=== PATIENT | male | born 1960 | race Caucasian/White ===

== ENCOUNTER 2018-10-08 10:53 | Inpatient (IN) | payer MEDICAID, SELFPAY ==
[~2018-10-08] VITALS: Ht 180.3 cm; Wt 79.5 kg
[2018-10-08] VITALS (9 sets, daily range): BP systolic 102–129; BP diastolic 66–81
[~2018-10-08 10:53] MED LIST: CLOP75TA3 PO; GABA-531 PO; LISI-660 PO; METO-558 PO; PERCT10 PO
[2018-10-08] MEDS ORDERED: TRAZ-220 PO (11:55)
[2018-10-08] MEDS ORDERED: PREG50 PO (11:56)
[2018-10-08] MEDS ORDERED: LOPERAMIDE HCL 2 MG CAPSULE PO PRN ×2 (13:00→20:30)
[2018-10-08] MEDS ORDERED: CYANOCOBALAMIN 1,000 MCG/ML VIAL IM ONE (13:00)
[2018-10-08] MEDS ORDERED: GuaiFENesin/D-METHORPHAN [SUGAR-FREE] 200-20MG/10 ML SYRUP UDCUP PO PRN (13:00)
[2018-10-08] MEDS ORDERED: LORazepam 2 MG TABLET PO PRN (13:00)
[2018-10-08] MEDS ORDERED: HydrOXYzine PAMOATE 50 MG CAPSULE PO PRN (13:00)
[2018-10-08] MEDS: FOLIC ACID 1 MG TABLET PO SCH (13:37)
[2018-10-08] MEDS: MULTIVITAMINS WITH MINERALS, THERAPEUTIC TABLET PO SCH (13:38)
[2018-10-08] MEDS: ARIPiprazole 5 MG TABLET PO SCH (13:38)
[2018-10-08] MEDS: THIAMINE HCL 100 MG TABLET PO SCH (16:09)
[2018-10-08] MEDS ORDERED: MAGNESIUM HYDROXIDE SUSPENSION 30 ML UDCUP PO PRN (20:30)
[2018-10-08] MEDS ORDERED: PETROLATUM,WHITE 71 GM JELLY TP PRN (20:30)
[2018-10-08] MEDS ORDERED: BENZOCAINE/MENTHOL LOZENGE MM PRN (20:30)
[2018-10-08] MEDS ORDERED: ALBUTEROL SULFATE HFA 90 MCG/PUFF 8 GM INHALER IH PRN (20:30)
[2018-10-08] MEDS ORDERED: MAG HYDROX/AL HYDROX/SIMETH ES 30 ML SUSPENSION UDCUP PO PRN (20:30)
[2018-10-08] MEDS ORDERED: CloNIDine HCL 0.1 MG TABLET PO PRN (20:30)
[2018-10-08] MEDS ORDERED: ONDANSETRON HCL 4 MG TABLET PO PRN (20:30)
[2018-10-08] MEDS ORDERED: BACITRACIN 28.4 GM OINTMENT TP PRN (20:30)
[2018-10-08] MEDS ORDERED: MIRTAZAPINE 15 MG TABLET PO SCH (21:00)
[2018-10-09 00:01] VITALS: BP 118/79
[2018-10-09 04:00] VITALS: BP 121/78
[2018-10-09] MEDS ORDERED: LORazepam 2 MG TABLET PO PRN (07:00)
[2018-10-09 08:00] VITALS: BP 102/71
[2018-10-09 08:12] LABS: BASOPHILS % (AUTO) 0.6 % (0.0-2.0); EOSINOPHILS % (AUTO) 0.8 % (1.0-6.0); HEMATOCRIT 42.9 % (41-53); HEMOGLOBIN 15.2 g/dL (13.5-17.5); LYMPHOCYTES # (AUTO) 1.7 K/uL (1.0-4.8); LYMPHOCYTES % (AUTO) 29.3 % (22.0-44.0); MEAN CORPUSCULAR HEMOGLOBIN 32.2 pg (26.0-34.0); MEAN CORPUSCULAR HGB CONC 35.4 G/dL (31.0-37.0); MEAN CORPUSCULAR VOLUME 91 fL (80-100); MONOCYTES # (AUTO) 0.4 K/uL (0.1-1.0); MONOCYTES % (AUTO) 7.7 % (2.0-9.0); NEUTROPHILS # (AUTO) 3.6 K/uL (1.8-7.7); NEUTROPHILS % (AUTO) 61.6 % (40.0-70.0); PLATELET COUNT (AUTO) 289 K/uL (150-450); RED BLOOD CELL COUNT(AUTO) 4.71 MIL/uL (4.50-5.90)
[2018-10-09] MEDS: FOLIC ACID 1 MG TABLET PO SCH (08:33)
[2018-10-09] MEDS: DOCUSATE SODIUM 100 MG CAPSULE PO SCH (08:33)
[2018-10-09] MEDS: MULTIVITAMINS WITH MINERALS, THERAPEUTIC TABLET PO SCH (08:33)
[2018-10-09] MEDS: LORazepam 2 MG TABLET PO SCH ×4 (08:33→20:20)
[2018-10-09] MEDS: SIMVASTATIN 20 MG TABLET PO SCH (08:33)
[2018-10-09] MEDS: THIAMINE HCL 100 MG TABLET PO SCH ×2 (08:33→16:59)
[2018-10-09] MEDS: CLOPIDOGREL BISULFATE 75 MG TABLET PO SCH (08:34)
[2018-10-09] MEDS: METOPROLOL TARTRATE 50 MG TABLET PO SCH (08:34)
[2018-10-09 08:40] LABS: HEMOGLOBIN A1C 5.1 % (4.5-6.2)
[2018-10-09 08:51] LABS: ALANINE AMINOTRANSFERASE 27 U/L (12-78); ALBUMIN 3.2 g/dL (3.4-5.0); ALKALINE PHOSPHATASE 103 U/L (46-116); ANION GAP 7 mmol/L (8-16); ASPARTATE AMINOTRANSFERASE 21 U/L (15-37); BILIRUBIN,TOTAL 0.4 mg/dL (0.1-1.0); CALCIUM, TOTAL 9.3 mg/dL (8.8-10.5); CARBON DIOXIDE 27 mmol/L (22-29); CHLORIDE 103 mmol/L (98-107); CHOL/HDL RATIO 3.9 (4.2-7.3); CHOLESTEROL 228 mg/dL (131-200); CREATININE 0.75 mg/dL (0.60-1.30); FREE T4 (FREE THYROXINE) 0.77 ng/dL (0.76-1.46); GLOMERULAR FILTR. RATE CALC > 60 mL/min (>60); GLUCOSE,RANDOM 86 mg/dL (70-110); HDL CHOLESTEROL 59 mg/dL (40-60); LDL CHOL (CALC.) 125 mg/dL (0-130); SODIUM SERUM 137 mmol/L (136-145); THYROID STIMULATING HORMONE 0.86 uIU/mL (0.36-3.74); TOTAL PROTEIN, SERUM 6.7 g/dL (6.4-8.2); TRIGLYCERIDES 218 mg/dL (15-150); UREA NITROGEN, BLOOD 12 mg/dL (7-18)
[2018-10-09] MEDS: LISINOPRIL 5 MG TABLET PO SCH (09:29)
[2018-10-09] MEDS: ARIPiprazole 5 MG TABLET PO SCH (09:29)
[2018-10-09 12:00] VITALS: BP 111/73
[2018-10-09 16:00] VITALS: BP 122/74
[2018-10-09] MEDS: MIRTAZAPINE 30 MG TABLET PO SCH (20:21)
[2018-10-10 00:01] VITALS: BP 116/70
[2018-10-10] MEDS: ZOLPIDEM TARTRATE 10 MG TABLET PO PRN (00:05)
[2018-10-10] MEDS: ACETAMINOPHEN 325 MG TABLET PO PRN (00:05)
[2018-10-10 08:00] VITALS: BP 109/84
[2018-10-10 08:18] VITALS: BP 109/84
[2018-10-10] MEDS: ARIPiprazole 10 MG TABLET PO SCH (08:57)
[2018-10-10] MEDS: MULTIVITAMINS WITH MINERALS, THERAPEUTIC TABLET PO SCH (08:57)
[2018-10-10] MEDS: LORazepam 2 MG TABLET PO SCH ×4 (08:57→21:22)
[2018-10-10] MEDS: LISINOPRIL 5 MG TABLET PO SCH (08:58)
[2018-10-10] MEDS: GABAPENTIN 300 MG CAPSULE PO SCH ×2 (08:58→16:32)
[2018-10-10] MEDS: SIMVASTATIN 20 MG TABLET PO SCH (08:58)
[2018-10-10] MEDS: FOLIC ACID 1 MG TABLET PO SCH (08:58)
[2018-10-10] MEDS: THIAMINE HCL 100 MG TABLET PO SCH ×2 (08:58→16:32)
[2018-10-10] MEDS: CLOPIDOGREL BISULFATE 75 MG TABLET PO SCH (08:58)
[2018-10-10] MEDS: OMEGA-3/DHA/EPA/FISH OIL 1,000 MG CAPSULE PO SCH (08:58)
[2018-10-10] MEDS: METOPROLOL TARTRATE 50 MG TABLET PO SCH (08:58)
[2018-10-10] MEDS: DOCUSATE SODIUM 100 MG CAPSULE PO SCH (08:58)
[2018-10-10] MEDS ORDERED: LORazepam 2 MG/ML VIAL IM ONE (15:15)
[2018-10-10] MEDS ORDERED: DiphenhydrAMINE HCL 50 MG/ML VIAL IM ONE (15:15)
[2018-10-10] MEDS ORDERED: HALOPERIDOL LACTATE 5 MG/ML VIAL IM ONE (15:15)
[2018-10-10 16:00] VITALS: BP 103/70
[2018-10-10 16:01] VITALS: BP 103/70
[2018-10-10] MEDS: NICOTINE 21 MG/24 HOUR PATCH TD SCH (17:23)
[2018-10-10] MEDS: MIRTAZAPINE 30 MG TABLET PO SCH (20:29)
[2018-10-11] VITALS (9 sets, daily range): BP systolic 109–122; BP diastolic 68–89
[2018-10-11] MEDS: ZOLPIDEM TARTRATE 10 MG TABLET PO PRN (00:13)
[2018-10-11] MEDS: ACETAMINOPHEN 325 MG TABLET PO PRN ×2 (01:47→06:24)
[2018-10-11] MEDS: HALOPERIDOL 5 MG TABLET PO PRN ×2 (01:47→14:52)
[2018-10-11] MEDS ORDERED: DiphenhydrAMINE HCL 50 MG/ML VIAL ONE (06:25)
[2018-10-11] MEDS ORDERED: HALOPERIDOL LACTATE 5 MG/ML VIAL ONE (06:26)
[2018-10-11] MEDS ORDERED: LORazepam 2 MG/ML VIAL ONE (06:26)
[2018-10-11] MEDS ORDERED: DiphenhydrAMINE HCL 50 MG/ML VIAL IM ONE ×2 (06:30→10:45)
[2018-10-11] MEDS ORDERED: HALOPERIDOL LACTATE 5 MG/ML VIAL IM ONE ×2 (06:30→10:45)
[2018-10-11] MEDS ORDERED: LORazepam 2 MG/ML VIAL IM ONE ×2 (06:30→10:45)
[2018-10-11] MEDS ORDERED: LORazepam 1 MG TABLET PO PRN (07:00)
[2018-10-11 08:48] LABS: ALANINE AMINOTRANSFERASE 38 U/L (12-78); ALBUMIN 3.8 g/dL (3.4-5.0); ALKALINE PHOSPHATASE 109 U/L (46-116); ANION GAP 11 mmol/L (8-16); ASPARTATE AMINOTRANSFERASE 50 U/L (15-37); BILIRUBIN,TOTAL 0.6 mg/dL (0.1-1.0); CALCIUM, TOTAL 9.6 mg/dL (8.8-10.5); CARBON DIOXIDE 26 mmol/L (22-29); CHLORIDE 105 mmol/L (98-107); CREATININE 0.82 mg/dL (0.60-1.30); GLOMERULAR FILTR. RATE CALC > 60 mL/min (>60); GLUCOSE,RANDOM 89 mg/dL (70-110); POTASSIUM 4.2 mmol/L (3.5-5.1); SODIUM SERUM 142 mmol/L (136-145); TOTAL PROTEIN, SERUM 6.6 g/dL (6.4-8.2); UREA NITROGEN, BLOOD 14 mg/dL (7-18)
[2018-10-11] MEDS ORDERED: LORazepam 1 MG TABLET PO SCH (09:00)
[2018-10-11] MEDS: GABAPENTIN 300 MG CAPSULE PO SCH ×2 (09:34→16:05)
[2018-10-11] MEDS: NICOTINE 21 MG/24 HOUR PATCH TD SCH (09:34)
[2018-10-11] MEDS: THIAMINE HCL 100 MG TABLET PO SCH ×2 (09:34→16:06)
[2018-10-11] MEDS: OMEGA-3/DHA/EPA/FISH OIL 1,000 MG CAPSULE PO SCH (09:34)
[2018-10-11] MEDS: CLOPIDOGREL BISULFATE 75 MG TABLET PO SCH (09:34)
[2018-10-11] MEDS: DOCUSATE SODIUM 100 MG CAPSULE PO SCH (09:34)
[2018-10-11] MEDS: LISINOPRIL 5 MG TABLET PO SCH (09:34)
[2018-10-11] MEDS: ARIPiprazole 10 MG TABLET PO SCH (09:34)
[2018-10-11] MEDS: METOPROLOL TARTRATE 50 MG TABLET PO SCH (09:34)
[2018-10-11] MEDS: SIMVASTATIN 20 MG TABLET PO SCH (09:34)
[2018-10-11] MEDS: MULTIVITAMINS WITH MINERALS, THERAPEUTIC TABLET PO SCH (09:34)
[2018-10-11] MEDS: FOLIC ACID 1 MG TABLET PO SCH (09:35)
[2018-10-11] MEDS: LORazepam 1 MG TABLET PO SCH ×4 (12:00→20:25)
[2018-10-11] MEDS: MUPIROCIN CALCIUM 2% 22 GM OINTMENT NASAL SCH (16:07)
[2018-10-11] MEDS: MIRTAZAPINE 30 MG TABLET PO SCH (20:25)
[2018-10-12 02:08] VITALS: BP 100/64
[2018-10-12 08:41] LABS: BASOPHILS % (AUTO) 0.4 % (0.0-2.0); EOSINOPHILS % (AUTO) 1.2 % (1.0-6.0); HEMATOCRIT 40.1 % (41-53); LYMPHOCYTES # (AUTO) 1.4 K/uL (1.0-4.8); LYMPHOCYTES % (AUTO) 27.6 % (22.0-44.0); MEAN CORPUSCULAR HEMOGLOBIN 31.7 pg (26.0-34.0); MEAN CORPUSCULAR HGB CONC 34.9 G/dL (31.0-37.0); MEAN CORPUSCULAR VOLUME 91 fL (80-100); MONOCYTES # (AUTO) 0.4 K/uL (0.1-1.0); NEUTROPHILS % (AUTO) 61.8 % (40.0-70.0); PLATELET COUNT (AUTO) 247 K/uL (150-450); RED BLOOD CELL COUNT(AUTO) 4.41 MIL/uL (4.50-5.90); RED CELL DISTRIBUTION WIDTH 14.3 % (11.5-14.5)
[2018-10-12] MEDS: MUPIROCIN CALCIUM 2% 22 GM OINTMENT NASAL SCH ×2 (08:47→16:15)
[2018-10-12] MEDS: METOPROLOL TARTRATE 50 MG TABLET PO SCH (08:49)
[2018-10-12] MEDS: ARIPiprazole 10 MG TABLET PO SCH (08:49)
[2018-10-12] MEDS: DOCUSATE SODIUM 100 MG CAPSULE PO SCH (08:49)
[2018-10-12] MEDS: MULTIVITAMINS WITH MINERALS, THERAPEUTIC TABLET PO SCH (08:49)
[2018-10-12] MEDS: GABAPENTIN 300 MG CAPSULE PO SCH ×2 (08:49→16:15)
[2018-10-12] MEDS: OMEGA-3/DHA/EPA/FISH OIL 1,000 MG CAPSULE PO SCH (08:49)
[2018-10-12] MEDS: THIAMINE HCL 100 MG TABLET PO SCH ×2 (08:49→16:15)
[2018-10-12] MEDS: FOLIC ACID 1 MG TABLET PO SCH (08:49)
[2018-10-12] MEDS: CLOPIDOGREL BISULFATE 75 MG TABLET PO SCH (08:49)
[2018-10-12] MEDS: NICOTINE 21 MG/24 HOUR PATCH TD SCH (08:50)
[2018-10-12] MEDS: SIMVASTATIN 20 MG TABLET PO SCH (08:50)
[2018-10-12] MEDS: HALOPERIDOL 5 MG TABLET PO PRN (08:50)
[2018-10-12] MEDS: LISINOPRIL 5 MG TABLET PO SCH (08:50)
[2018-10-12] MEDS: LORazepam 1 MG TABLET PO PRN ×2 (08:50→16:14)
[2018-10-12 11:46] VITALS: BP 114/71
[2018-10-12 16:00] VITALS: BP 118/75
[2018-10-12 16:22] VITALS: BP 118/75
[2018-10-12] MEDS: MIRTAZAPINE 30 MG TABLET PO SCH (20:37)
[2018-10-13 00:28] VITALS: BP 116/76
[2018-10-13] MEDS: THIAMINE HCL 100 MG TABLET PO SCH ×2 (08:23→16:41)
[2018-10-13] MEDS: SIMVASTATIN 20 MG TABLET PO SCH (08:23)
[2018-10-13] MEDS: NICOTINE 21 MG/24 HOUR PATCH TD SCH (08:23)
[2018-10-13] MEDS: OMEGA-3/DHA/EPA/FISH OIL 1,000 MG CAPSULE PO SCH (08:23)
[2018-10-13] MEDS: MULTIVITAMINS WITH MINERALS, THERAPEUTIC TABLET PO SCH (08:23)
[2018-10-13] MEDS: DOCUSATE SODIUM 100 MG CAPSULE PO SCH (08:23)
[2018-10-13] MEDS: METOPROLOL TARTRATE 50 MG TABLET PO SCH (08:23)
[2018-10-13] MEDS: ARIPiprazole 10 MG TABLET PO SCH (08:23)
[2018-10-13] MEDS: FOLIC ACID 1 MG TABLET PO SCH (08:24)
[2018-10-13] MEDS: CLOPIDOGREL BISULFATE 75 MG TABLET PO SCH (08:24)
[2018-10-13 08:50] VITALS: BP 123/77
[2018-10-13] MEDS: MUPIROCIN CALCIUM 2% 22 GM OINTMENT NASAL SCH ×2 (09:00→16:42)
[2018-10-13] MEDS: LISINOPRIL 5 MG TABLET PO SCH (09:11)
[2018-10-13] MEDS: GABAPENTIN 300 MG CAPSULE PO SCH ×2 (09:11→16:41)
[2018-10-13] MEDS: LORazepam 2 MG TABLET PO PRN ×3 (11:29→21:01)
[2018-10-13 16:42] VITALS: BP 112/89
[2018-10-13] MEDS: MIRTAZAPINE 30 MG TABLET PO SCH (20:23)
[2018-10-14 06:31] VITALS: BP 108/84
[2018-10-14 08:15] VITALS: BP 102/80
[2018-10-14] MEDS: MUPIROCIN CALCIUM 2% 22 GM OINTMENT NASAL SCH ×2 (08:54→16:20)
[2018-10-14] MEDS: THIAMINE HCL 100 MG TABLET PO SCH ×2 (08:56→16:20)
[2018-10-14] MEDS: SIMVASTATIN 20 MG TABLET PO SCH (08:56)
[2018-10-14] MEDS: CLOPIDOGREL BISULFATE 75 MG TABLET PO SCH (08:57)
[2018-10-14] MEDS: GABAPENTIN 300 MG CAPSULE PO SCH ×2 (08:57→16:20)
[2018-10-14] MEDS: MULTIVITAMINS WITH MINERALS, THERAPEUTIC TABLET PO SCH (08:57)
[2018-10-14] MEDS: FOLIC ACID 1 MG TABLET PO SCH (08:57)
[2018-10-14] MEDS: OMEGA-3/DHA/EPA/FISH OIL 1,000 MG CAPSULE PO SCH (08:57)
[2018-10-14] MEDS: ARIPiprazole 10 MG TABLET PO SCH (08:57)
[2018-10-14] MEDS: NICOTINE 21 MG/24 HOUR PATCH TD SCH (08:57)
[2018-10-14] MEDS: DOCUSATE SODIUM 100 MG CAPSULE PO SCH (08:57)
[2018-10-14] MEDS: METOPROLOL TARTRATE 50 MG TABLET PO SCH (10:24)
[2018-10-14] MEDS: LISINOPRIL 5 MG TABLET PO SCH (10:24)
[2018-10-14 10:25] VITALS: BP 126/77
[2018-10-14] MEDS: LORazepam 2 MG TABLET PO PRN ×2 (13:31→18:15)
[2018-10-14 16:49] VITALS: BP 108/68
[2018-10-14] MEDS: HALOPERIDOL 5 MG TABLET PO PRN (18:15)
[2018-10-14] MEDS: MIRTAZAPINE 30 MG TABLET PO SCH (20:13)
[2018-10-15 00:22] VITALS: BP 110/72
[2018-10-15] MEDS: LORazepam 2 MG TABLET PO PRN ×3 (04:26→16:11)
[2018-10-15] MEDS: MUPIROCIN CALCIUM 2% 22 GM OINTMENT NASAL SCH ×2 (08:41→16:11)
[2018-10-15] MEDS: OMEGA-3/DHA/EPA/FISH OIL 1,000 MG CAPSULE PO SCH (08:41)
[2018-10-15] MEDS: FOLIC ACID 1 MG TABLET PO SCH (08:42)
[2018-10-15] MEDS: CLOPIDOGREL BISULFATE 75 MG TABLET PO SCH (08:42)
[2018-10-15] MEDS: LISINOPRIL 5 MG TABLET PO SCH (08:42)
[2018-10-15] MEDS: DOCUSATE SODIUM 100 MG CAPSULE PO SCH (08:42)
[2018-10-15] MEDS: METOPROLOL TARTRATE 50 MG TABLET PO SCH (08:42)
[2018-10-15] MEDS: THIAMINE HCL 100 MG TABLET PO SCH ×2 (08:42→16:11)
[2018-10-15] MEDS: ARIPiprazole 10 MG TABLET PO SCH (08:42)
[2018-10-15] MEDS: MULTIVITAMINS WITH MINERALS, THERAPEUTIC TABLET PO SCH (08:42)
[2018-10-15] MEDS: GABAPENTIN 300 MG CAPSULE PO SCH ×2 (08:42→16:11)
[2018-10-15] MEDS: SIMVASTATIN 20 MG TABLET PO SCH (08:42)
[2018-10-15] MEDS: NICOTINE 21 MG/24 HOUR PATCH TD SCH (08:43)
[2018-10-15 14:44] VITALS: BP 122/79
[2018-10-15] MEDS: ACETAMINOPHEN 325 MG TABLET PO PRN (14:44)
[2018-10-15] MEDS: HALOPERIDOL 5 MG TABLET PO PRN (16:11)
[2018-10-15 16:31] VITALS: BP 105/70
[2018-10-15] MEDS: MIRTAZAPINE 30 MG TABLET PO SCH (20:35)
[2018-10-16 00:37] VITALS: BP 101/64
[2018-10-16 08:32] VITALS: BP 124/96
[2018-10-16] MEDS: FOLIC ACID 1 MG TABLET PO SCH (08:55)
[2018-10-16] MEDS: MULTIVITAMINS WITH MINERALS, THERAPEUTIC TABLET PO SCH (08:55)
[2018-10-16] MEDS: ARIPiprazole 10 MG TABLET PO SCH (08:55)
[2018-10-16] MEDS: THIAMINE HCL 100 MG TABLET PO SCH (08:55)
[2018-10-16] MEDS: CLOPIDOGREL BISULFATE 75 MG TABLET PO SCH (08:55)
[2018-10-16] MEDS: GABAPENTIN 300 MG CAPSULE PO SCH (08:55)
[2018-10-16] MEDS: SIMVASTATIN 20 MG TABLET PO SCH (08:55)
[2018-10-16] MEDS: DOCUSATE SODIUM 100 MG CAPSULE PO SCH (08:55)
[2018-10-16] MEDS: METOPROLOL TARTRATE 50 MG TABLET PO SCH (08:55)
[2018-10-16] MEDS: OMEGA-3/DHA/EPA/FISH OIL 1,000 MG CAPSULE PO SCH (08:56)
[2018-10-16] MEDS: LISINOPRIL 5 MG TABLET PO SCH (08:56)
[2018-10-16] MEDS: NICOTINE 21 MG/24 HOUR PATCH TD SCH ×3 (08:56→09:15)
[2018-10-16] MEDS: MUPIROCIN CALCIUM 2% 22 GM OINTMENT NASAL SCH (09:11)
[2018-10-16] MEDS ORDERED: MIRT30 PO (13:01)
[2018-10-16] MEDS ORDERED: ARIP10TA8 PO (13:01)
[2018-10-16] MEDS ORDERED: METO50 PO (13:01)
[2018-10-16] MEDS ORDERED: SIMV-261 PO (13:01)
== END 2018-10-16 18:07 | disposition home or self-care (01) | DRG 750 ==
LOC: B2S 11:04
PROVIDERS: ADMIT Psychiatry & Neurology Psychiatry; ATTEND Psychiatry & Neurology Psychiatry
DX: F25.0 Schizoaffective disorder, bipolar type (principal); R45.851 Suicidal ideations; Z59.0 Homelessness; F41.9 Anxiety disorder, unspecified; G47.00 Insomnia, unspecified; G89.29 Other chronic pain; I10 Essential (primary) hypertension; K59.00 Constipation, unspecified; Z53.20 Procedure and treatment not carried out because of patient's decision for unspecified reasons; F15.90 Other stimulant use, unspecified, uncomplicated; F10.239 Alcohol dependence with withdrawal, unspecified; E78.5 Hyperlipidemia, unspecified; F12.90 Cannabis use, unspecified, uncomplicated; M10.9 Gout, unspecified; M54.30 Sciatica, unspecified side; M54.9 Dorsalgia, unspecified; Z56.0 Unemployment, unspecified; Z91.19 Patient's noncompliance with other medical treatment and regimen; Z79.899 Other long term (current) drug therapy
CPT/HCPCS: 83036; 84439; 84443; 87081; J1200; J1630; J2060; J3420

== ENCOUNTER 2018-10-19 18:18 | Emergency (ER) | payer MEDICAID, SELFPAY ==
[~2018-10-19] VITALS: Ht 177.8 cm; Wt 90.9 kg
[~2018-10-19 18:18] MED LIST changes: +ARIP10TA8 PO; -METO-558 PO; +METO50 PO; +MIRT30 PO; -PERCT10 PO; +SIMV-261 PO
[2018-10-19] MEDS ORDERED: HYDROmorphone 2 MG/ML SYRINGE IM ONE (20:45)
[2018-10-19 22:24] VITALS: BP 125/73
== END 2018-10-19 22:50 | disposition home or self-care (01) ==
LOC: EMS 18:21
DX: S80.02XA Contusion of left knee, initial encounter (principal); S90.02XA Contusion of left ankle, initial encounter; G62.9 Polyneuropathy, unspecified; I10 Essential (primary) hypertension; Z79.899 Other long term (current) drug therapy; Z95.5 Presence of coronary angioplasty implant and graft; W23.0XXA Caught, crushed, jammed, or pinched between moving objects, initial encounter; Y93.89 Activity, other specified; Y92.89 Other specified places as the place of occurrence of the external cause; Y99.8 Other external cause status
CPT/HCPCS: 29505; 73562; 73590; 73610; 96372; 99283; J1170

== ENCOUNTER 2018-10-22 20:46 | Emergency (ER) | payer MEDICAID ==
[~2018-10-22] VITALS: Ht 177.8 cm; Wt 81.8 kg
[2018-10-22] MEDS ORDERED: TraMADol HCL 50 MG TABLET PO ONE (23:45)
[2018-10-22 23:48] VITALS: BP 133/80
== END 2018-10-22 23:50 | disposition home or self-care (01) ==
LOC: EMS 20:48
DX: M54.5 Low back pain (principal); I10 Essential (primary) hypertension; F17.210 Nicotine dependence, cigarettes, uncomplicated; Z79.899 Other long term (current) drug therapy